=== PATIENT | male | born 1980 | race Caucasian/White ===

== ENCOUNTER → 2016-12-05 | Outpatient (CLI) | payer BC | LOC: RAD 14:12 | DX: M25.531 Pain in right wrist (principal) | CPT/HCPCS: 73100 ==

== ENCOUNTER 2021-12-06 02:37 | Emergency (ER) | payer BC ==
[~2021-12-06 02:37] MED LIST: BENADRYL 25MG C25 MG PO; PREDNISONE20 MG PO
[2021-12-06 03:09] LABS: HEMOGLOBIN 15.6 gm/dl (14.0-17.5); RED BLOOD COUNT 5.57 M/UL (4.20-5.50); WHITE BLOOD COUNT 14.1 K/UL (4.5-11.0)
[2021-12-06 03:32] LABS: BUN/CREATININE RATIO 13 (0-10)
[2021-12-06] MEDS ORDERED: ZOFRAN ODT 4 MG4 MG PO (06:27)
== END 2021-12-06 06:31 | disposition home or self-care (01) ==
LOC: ER1 02:37
PROVIDERS: Family Medicine
DX: R55 Syncope and collapse (principal); R53.83 Other fatigue; R11.2 Nausea with vomiting, unspecified; E66.9 Obesity, unspecified; F17.210 Nicotine dependence, cigarettes, uncomplicated
CPT/HCPCS: 36600; 71045; 80053; 82550; 82553; 82803; 84484; 85025; 93005; 99284